=== PATIENT | female | born 1965 | race Caucasian/White ===

== ENCOUNTER 2016-05-17 09:35 | Emergency (ER) | payer OTHER ==
[~2016-05-17] VITALS: Ht 167.6 cm; Wt 100.0 kg
[2016-05-17 09:37] VITALS: BP 140/65; PULSE 94; RESP 15; TEMP 97.9; O2SAT 96
[2016-05-17 10:13] VITALS: BP 122/98; PULSE 82; RESP 16; O2SAT 95
--- NOTE | 2016-05-17 10:17 | PD ---
HPI Chief Complaint: Psychiatric Symptoms Time Seen by Provider: 10:15 Travel History International Travel<30 days: No Contact w/Intl Traveler<30days: No Traveled to known affect area: No History of Present Illness HPI 51-year-old female with history of ankylosing spondylitis, chronic back pain, anxiety attacks, depression, presents to the ER today because she states that she has been very depressed about her condition, and has had suicidal thoughts but states that she would never act on them. She is here because she is requesting psychiatric evaluation because of her worsening anxiety and depression. Modifying Factors: None Associated Signs & Symptoms: Request for psychiatric evaluation for anxiety and depression Risk Factors: History of anxiety and depression PFSH Past Medical History ?: Not Social History Alcohol Use: No Tobacco Use: Yes Substance Use: No Allergies-Medications (Allergen,Severity, Reaction): Coded Allergies: Lyrica (Verified Allergy, Severe, 05/17/16) Penicillin (Verified Allergy, Severe, 05/17/16) Review of Systems Except as stated in HPI: all other systems reviewed are Neg Physical Exam Narrative GENERAL: Well-nourished, well-developed middle age white female patient who is tearful, but awake, alert, oriented 3. SKIN: Warm and dry. HEAD: Normocephalic. EYES: No scleral icterus. No injection or drainage. NECK: Supple, trachea midline. CARDIOVASCULAR: Regular rate and rhythm without murmurs, gallops, or rubs. RESPIRATORY: Breath sounds equal bilaterally. No accessory muscle use. GASTROINTESTINAL: Abdomen soft, non-tender, nondistended. MUSCULOSKELETAL: No cyanosis, or edema. BACK: Nontender without obvious deformity. No CVA tenderness. Data Data Last Documented VS Vital Signs Date Time Temp Pulse Resp B/P Pulse Ox O2 Delivery O2 Flow Rate FiO2 05/17/16 10:13 82 16 122/98 95 Room Air 05/17/16 09:37 97.9 Orders Complete Blood Count With Diff (05/17/16 09:49) Comprehensive Metabolic Panel (05/17/16 09:49) Drug Screen, Random Urine (05/17/16 09:49) Alcohol (Ethanol) (05/17/16 09:49) Psych Screen (05/17/16 09:49) Labs Laboratory Tests Test 05/17/16 05/17/16 10:00 10:09 Urine Opiates Screen POS Urine Barbiturates Screen NEG Urine Amphetamines Screen NEG Urine Benzodiazepines Screen NEG Urine Cocaine Screen NEG Urine Cannabinoids Screen POS White Blood Count 8.2 TH/MM3 Red Blood Count 5.60 MIL/MM3 Hemoglobin 16.8 GM/DL Hematocrit 48.0 % Mean Corpuscular Volume 85.7 FL Mean Corpuscular Hemoglobin 30.1 PG Mean Corpuscular Hemoglobin 35.1 % Concent Red Cell Distribution Width 14.0 % Platelet Count 252 TH/MM3 Mean Platelet Volume 8.6 FL Neutrophils (%) (Auto) 41.0 % Lymphocytes (%) (Auto) 47.1 % Monocytes (%) (Auto) 6.6 % Eosinophils (%) (Auto) 4.5 % Basophils (%) (Auto) 0.8 % Neutrophils # (Auto) 3.4 TH/MM3 Lymphocytes # (Auto) 3.9 TH/MM3 Monocytes # (Auto) 0.5 TH/MM3 Eosinophils # (Auto) 0.4 TH/MM3 Basophils # (Auto) 0.1 TH/MM3 CBC Comment DIFF FINAL Differential Comment Sodium Level 134 MEQ/L Potassium Level 4.3 MEQ/L Chloride Level 97 MEQ/L Carbon Dioxide Level 25.8 MEQ/L Anion Gap 11 MEQ/L Blood Urea Nitrogen 10 MG/DL Creatinine 0.86 MG/DL Estimat Glomerular Filtration 69 ML/MIN Rate Random Glucose 102 MG/DL Calcium Level 10.0 MG/DL Total Bilirubin 0.3 MG/DL Aspartate Amino Transf 21 U/L (AST/SGOT) Alanine Aminotransferase 21 U/L (ALT/SGPT) Alkaline Phosphatase 90 U/L Total Protein 7.5 GM/DL Albumin 3.9 GM/DL Ethyl Alcohol Level LESS THAN 3 MG/DL MDM Medical Decision Making Medical Screen Exam Complete: Yes Emergency Medical Condition: Yes Medical Record Reviewed: Yes Interpretation(s) Laboratory Tests Test 05/17/16 05/17/16 10:00 10:09 Urine Opiates Screen POS (NEG) Urine Cannabinoids Screen POS (NEG) Red Blood Count 5.60 MIL/MM3 (4.00-5.30) Hemoglobin 16.8 GM/DL (11.6-15.3) Hematocrit 48.0 % (35.0-46.0) Lymphocytes (%) (Auto) 47.1 % (9.0-44.0) Eosinophils (%) (Auto) 4.5 % (0.0-4.0) Sodium Level 134 MEQ/L (136-145) Chloride Level 97 MEQ/L (98-107) Estimat Glomerular Filtration 69 ML/MIN (>89) Rate Differential Diagnosis Request for psychiatric evaluation Narrative Course Lab work did not reveal any significant metabolic issues. Vital signs are stable in the ER. She has opiates and cannabis in her system. At this point, my plan would be to medically clear for psychiatric evaluation. Diagnosis Primary Impression: Depression (emotion) Disposition: 65 DISC TO PSYCH CARE FACILITY Condition: Stable Aly Ga MD May 17, 2016 10:17
[2016-05-17 10:28] LABS: AUTOMATED NEUTROPHIL # 3.4 TH/MM3 (1.8-7.7); BASOPHIL # 0.1 TH/MM3 (0-0.2); BASOPHIL % 0.8 % (0.0-2.0); EOSINOPHIL # 0.4 TH/MM3 (0-0.4); EOSINOPHIL % 4.5 % (0.0-4.0); HEMO FLAGS DIFF FINAL; LYMPH % 47.1 % (9.0-44.0); LYMPHOCYTE # 3.9 TH/MM3 (1.0-4.8); MEAN CELL VOLUME 85.7 FL (80.0-100.0); MEAN CORPUSCULAR HEMOGLOBIN 30.1 PG (27.0-34.0); MEAN CORPUSCULAR HGB CONC 35.1 % (32.0-36.0); MONO % 6.6 % (0.0-8.0); PLATELET COUNT 252 TH/MM3 (150-450); WHITE BLOOD COUNT 8.2 TH/MM3 (4.0-11.0)
[2016-05-17 10:34] LABS: AMPHETAMINE, URINE NEG (NEG); BARBITURATES, URINE NEG (NEG); COCAINE, URINE NEG (NEG)
[2016-05-17 10:55] LABS: ALKALINE PHOSPHATASE 90 U/L (45-117); ALT (GPT) 21 U/L (10-53); ANION GAP 11 MEQ/L (5-15); AST (GOT) 21 U/L (15-37); BICARBONATE 25.8 MEQ/L (21.0-32.0); BLOOD UREA NITROGEN 10 MG/DL (7-18); CHLORIDE 97 MEQ/L (98-107); GLOMERULAR FILTRATION RATE 69 ML/MIN (>89); POTASSIUM 4.3 MEQ/L (3.5-5.1); SODIUM (NA) 134 MEQ/L (136-145); TOTAL BILIRUBIN ADULT 0.3 MG/DL (0.2-1.0)
[2016-05-17] MEDS ORDERED: TIZA4CAP3 PO (11:02)
[2016-05-17] MEDS ORDERED: COQ-30CA2 PO (11:02)
[2016-05-17] MEDS ORDERED: VITA100064 PO (11:02)
[2016-05-17] MEDS ORDERED: DULO1CAP2 PO (11:02)
[2016-05-17] MEDS ORDERED: FURO40TA PO (11:02)
[2016-05-17] MEDS ORDERED: POTA10CA PO (11:02)
[2016-05-17] MEDS ORDERED: ASPI81CH CHEW (11:02)
[2016-05-17] MEDS ORDERED: CLON0.5T PO (11:02)
[2016-05-17] MEDS ORDERED: PERC10TA27 PO (11:02)
[2016-05-17] MEDS ORDERED: GABA600T PO (11:02)
[2016-05-17] MEDS ORDERED: METO50TA PO (11:02)
[2016-05-17] MEDS ORDERED: ADVI200C PO (11:03)
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
[2016-05-17 13:18] VITALS: BP 108/69
== END 2016-05-17 13:26 | disposition home or self-care (01) ==
LOC: NEPC 09:35
DX: F32.9 Major depressive disorder, single episode, unspecified (principal); F41.9 Anxiety disorder, unspecified; F41.1 Generalized anxiety disorder; Z72.0 Tobacco use; Z87.39 Personal history of other diseases of the musculoskeletal system and connective tissue
CPT/HCPCS: 80053; 80307; 80320; 85025; 99284